=== PATIENT | female | born 1995 | race Caucasian/White ===

== ENCOUNTER 2017-01-16 12:38 | Emergency (ER) | payer OTHER ==
[2017-01-16] MEDS ORDERED: Cyclobenzaprine 10 MG Tab PO ONE ×2 (12:39→14:49)
[2017-01-16] MEDS ORDERED: Acetaminophen/HYDROcodone 325-5 MG Tab PO ONE ×2 (12:39→14:49)
[2017-01-16] MEDS ORDERED: Sodium Chloride 0.9% 1,000 ML IV ONE (12:52)
[2017-01-16 12:59] LABS: CHLORIDE,CL 96 mEq/L (98-106); SODIUM,NA 134 mEq/L (136-145)
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
[2017-01-16] MEDS ORDERED: Take Home: Cyclobenzaprine 10 MG Tab, 4 Tab Pack PO ONE (13:25)
[2017-01-16] MEDS ORDERED: Take Home: Acetaminophen/HYDROcodone 325-5 MG, 2 Tab Pack PO ONE (13:25)
== END 2017-01-16 15:30 | disposition home or self-care (01) ==
LOC: CC.ED 12:38
DX: S09.90XA Unspecified injury of head, initial encounter (principal); S29.019A Strain of muscle and tendon of unspecified wall of thorax, initial encounter; S16.1XXA Strain of muscle, fascia and tendon at neck level, initial encounter; S46.911A Strain of unspecified muscle, fascia and tendon at shoulder and upper arm level, right arm, initial encounter; S20.211A Contusion of right front wall of thorax, initial encounter; S30.1XXA Contusion of abdominal wall, initial encounter; S20.221A Contusion of right back wall of thorax, initial encounter; S80.812A Abrasion, left lower leg, initial encounter; S60.511A Abrasion of right hand, initial encounter; Z88.1 Allergy status to other antibiotic agents; V57.5XXA Driver of pick-up truck or van injured in collision with fixed or stationary object in traffic accident, initial encounter; Y92.410 Unspecified street and highway as the place of occurrence of the external cause
CPT/HCPCS: 36415; 70450; 71260; 72125; 73030; 73590; 74177; 80053; 81001; 82150; 84703; 85025; 85610; 96360; 99285; A9270; J7030; Q9967